=== PATIENT | female | born 1975 | race Hispanic/Latino ===

== ENCOUNTER 2018-10-20 00:06 | Inpatient (IN) | payer OTHER ==
[2018-10-20 00:06] VITALS: BMI 23.6
[2018-10-20] MEDS ORDERED: Sodium Chloride 0.9% 1,000 ML IV ONE ×2 (00:30→00:31)
[2018-10-20] MEDS ORDERED: Iohexol 240 (50 ml) PO ONE (00:31)
--- NOTE | 2018-10-20 00:34 | C.PDOC ---
History Of Present Illness 43 year old female presents to the ED c/o left sided abdominal pain that started last night. Patient states she has history of diverticulitis in the past. Patient also reports having on and off fever since yesterday. Patient was seen at an Urgent Care today and her WBC was noted to be 19,000. Patient was referred to the ED for evaluation. Patient denies chills, headache, rash, CP, SOB, nausea, vomit, diarrhea, back pain, weakness, numbness. Chief Complaint (Nursing): Abdominal Pain History Per: Patient History/Exam Limitations: no limitations Onset/Duration Of Symptoms: Days (1) Current Symptoms Are (Timing): Still Present Location Of Pain/Discomfort: LLQ Quality Of Discomfort: "Pain" Associated Symptoms: Fever. denies: Nausea, Vomiting, Diarrhea, Urinary Symptoms Recent travel outside of the [place] States: No Additional History Per: Patient Abnormal Vaginal Bleeding: No Past Medical History Reviewed: Historical Data, Nursing Documentation, Vital Signs Vital Signs: Last Vital Signs Temp 97.8 F 10/20/18 00:14 Pulse 103 H 10/20/18 00:14 Resp 20 10/20/18 00:14 BP 121/81 10/20/18 00:14 Pulse Ox 100 10/20/18 00:14 - Medical History PMH: Diverticulitis Denies: Chronic Kidney Disease Surgical History: Appendectomy Family History: States: Unknown Family Hx - Social History Hx Alcohol Use: Yes Hx Substance Use: No - Immunization History Hx Tetanus Toxoid Vaccination: No Hx Influenza Vaccination: No Hx Pneumococcal Vaccination: No Review Of Systems Constitutional: Positive for: Fever Cardiovascular: Negative for: Chest Pain, Palpitations Respiratory: Negative for: Shortness of Breath Gastrointestinal: Positive for: Abdominal Pain. Negative for: Nausea, Vomiting, Diarrhea Skin: Negative for: Rash Neurological: Negative for: Weakness, Numbness, Headache, Dizziness Physical Exam - Physical Exam Appears: Non-toxic, No Acute Distress Skin: Normal Color, Warm, Dry Head: Atraumatic, Normacephalic Eye(s): bilateral: Normal Inspection Oral Mucosa: Moist Neck: Normal ROM, Supple Chest: Symmetrical Cardiovascular: Rhythm Regular Respiratory: Normal Breath Sounds, No Rales, No Rhonchi, No Wheezing Gastrointestinal/Abdominal: Soft, Tenderness (LLQ), No Guarding, Rebound (questionable ) Extremity: Normal ROM, No Tenderness, No Swelling Neurological/Psych: Oriented x3, Normal Speech, Normal Cognition Gait: Steady ED Course And Treatment - Laboratory Results Result Diagrams: 10/20/18 00:47 10/20/18 00:47 O2 Sat by Pulse Oximetry: 100 (ON RA) Pulse Ox Interpretation: Normal Medical Decision Making Medical Decision Making: Plan: * CT abd/pelvis * Labs * IV fluids * Toradol 30 mg IVP * Blood culture * UA Disposition Discussed With DrJenny: Harley Mcrae Doctor Will See Patient In The: Hospital Counseled Patient/Family Regarding: Diagnosis - Disposition Disposition: HOSPITALIZED Disposition Time: 03:40 Condition: STABLE Forms: [employer] (Tai[place]ese) - POA Present On Arrival: None - Clinical Impression Clinical Impression: Abdominal pain, Acute diverticulitis, Colitis - Scribe Statement The provider has reviewed the documentation as recorded by the Scribe Jeanmarie Ross All medical record entries made by the Scribe were at my direction and personally dictated by me. I have reviewed the chart and agree that the record accurately reflects my personal performance of the history, physical exam, medical decision making, and the department course for this patient. I have also personally directed, reviewed, and agree with the discharge instructions and dis position.
[2018-10-20] MEDS ORDERED: Sodium Chloride 0.9% 1,000 ML ONE ×2 (00:36→01:24)
[2018-10-20] MEDS ORDERED: metroNIDAZOLE IV 500 mg/100 ml 500 MG/100 ML BAG IVPB SCH (00:45)
[2018-10-20] MEDS ORDERED: Iohexol 240 (50 ml) ONE (00:52)
[2018-10-20] MEDS ORDERED: Ciprofloxacin 400mg/200ml D5W 400 MG/200 ML BAG IVPB ONE (00:53)
[2018-10-20 00:56] LABS: HCG,QUALITATIVE URINE NEGATIVE (NEGATIVE); SQUAMOUS EPITHIAL 1 /hpf (0-5); URINE BILIRUBIN NEGATIVE (NEGATIVE); URINE CLARITY Clear (Clear); URINE COLOR Straw (YELLOW); URINE GLUCOSE (UA) NORMAL (Normal); URINE LEUKOCYTE ESTERASE NEG Leu/uL (Negative); URINE PROTEIN NEGATIVE (NEGATIVE); URINE UROBILINOGEN NORMAL mg/dL (0.2-1.0)
[2018-10-20 00:57] LABS: URINE BLOOD NEGATIVE (NEGATIVE)
[2018-10-20 01:11] LABS: ALB/GLOB RATIO 1.6 (1.0-2.1); ALBUMIN 4.7 g/dL (3.5-5.0); ALT/SGPT 22 U/L (9-52); AST/SGOT 29 U/L (14-36); BLOOD UREA NITROGEN 9 mg/dL (7-17); CALCIUM 9.5 mg/dl (8.6-10.4); GFR NON-AFRICAN AMERICAN > 60; LIPASE 20 U/L (23-300)
[2018-10-20 01:12] LABS: BASO # 0.1 K/uL (0.0-0.2); BASO % 0.3 % (0.0-2.0); EOS % 0.2 % (0.0-4.0); HEMOGLOBIN 11.8 g/dL (11.0-16.0); LYMPH # 2.5 K/uL (1.0-4.3); MEAN CELL VOLUME 92.8 fL (81.0-99.0); MEAN CORPUSCULAR HEMOGLOBIN 30.6 pg (27.0-31.0); MEAN CORPUSCULAR HGB CONC 32.9 g/dL (33.0-37.0); MEAN PLATELET VOLUME 7.9 fL (7.2-11.7); MONO # 1.5 K/uL (0.0-0.8); MONO % 8.3 % (0.0-10.0); NEUT # 13.8 K/uL (1.8-7.0); NEUT % 77.2 % (50.0-75.0); RBC 3.87 Mil/uL (3.80-5.20); WHITE BLOOD COUNT 17.9 K/uL (4.8-10.8)
[2018-10-20] MEDS ORDERED: metroNIDAZOLE IV 500 mg/100 ml 500 MG/100 ML BAG IVPB STA (01:13)
[2018-10-20] MEDS: Ciprofloxacin 400mg/200ml D5W 400 MG/200 ML BAG IVPB STA ×2 (01:17→01:19)
[2018-10-20] MEDS ORDERED: Iodixanol 320 MG/ML 100 ML BOTTLE IV ONE (02:20)
[2018-10-20] MEDS ORDERED: metroNIDAZOLE IV 500 mg/100 ml 500 MG/100 ML BAG ONE (03:02)
--- NOTE | 2018-10-20 05:06 | CP.PCM.HP ---
<Bruna Robles - Last Filed: 10/20/18 06:52> History of Present Illness - History of Present Illness History of Present Illness: PGY-1 Bruna Robles D.O. H&P for Dr. Mcrae's service: Patient is a 43 yo female with a history of diverticulitis who presents with abdominal pain. Patient states that the pain started 2 days ago and was diffuse. The pain severity increased to 7/10 and localized to the left side. She reports having 3 episodes of diarrhea on Thursday, nonbloody, which has since resolved. She also endorses fever, Tmax 100.6. She denies nausea and vomiting. She does note that eating makes the pain worse and the last meal she had was lunch yesterday. She has only had clear liquids since. She went to urgent care yesterday and was given Augmentin. She then received a call last night from the urgent care who told her her WBC was elevated at 19, and they recommend she go to the ED. Patient reports having 2 previous episodes of diverticulitis. The first was 6 years ago during which she was septic. The most recent was 3 years ago and uncomplicated. Patient says she had nonspecific GI symptoms as a teenager. She has had a total of 4 colonoscopies, most recent 5 years ago. She was given conflicting diagnoses, including IBS and colitis. She currently does not follow with a PMD or GI. PMH: diverticulitis x2 PSH: colonoscopy x4 (most recent approx 5 years ago) Meds: none All: codeine- hives, sulfa- hives FH: mother- HTN SH: lives alone, works as an actor, drinks alcohol socially, denies tobacco or illicit drug use PMD: none Present on Admission - Present on Admission Any Indicators Present on Admission: No History of DVT/PE: No History of Uncontrolled Diabetes: No Urinary Catheter: No Decubitus Ulcer Present: No History Surgical Site Infection Following: None Review of Systems - Constitutional Constitutional: Chills, Fever. absent: Weight Loss - EENT Eyes: absent: Change in Vision Ears: absent: Decreased Hearing Nose/Mouth/Throat: absent: Nasal Congestion, Sore Throat - Cardiovascular Cardiovascular: absent: Chest Pain, Diaphoresis, Palpitations - Respiratory Respiratory: absent: Cough, Dyspnea - Gastrointestinal Gastrointestinal: As Per HPI, Abdominal Pain, Diarrhea, Loose Stools. absent: Constipation, Heartburn, Hematochezia, Melena, Nausea, Vomiting - Genitourinary Genitourinary: absent: Dysuria, Hematuria - Integumentary Integumentary: absent: Lesions Past Patient History - Infectious Disease Hx of Infectious Diseases: None - Tetanus Immunizations Tetanus Immunization: Unknown - Past Medical History & Family History Past Medical History?: Yes Past Family History: Reviewed and not pertinent - Past Social History Smoking Status: Never Smoked Chewing Tobacco Use: No Cigar Use: No Alcohol: Social Drugs: Denies Home Situation {Lives}: Alone - CARDIAC Hx Cardiac Disorders: No - PULMONARY Hx Respiratory Disorders: No - NEUROLOGICAL Hx Neurological Disorder: No - HEENT Hx HEENT Problems: No - RENAL Hx Chronic Kidney Disease: No - ENDOCRINE/METABOLIC Hx Endocrine Disorders: No - HEMATOLOGICAL/ONCOLOGICAL Hx Blood Disorders: No - INTEGUMENTARY Hx Dermatological Problems: No - MUSCULOSKELETAL/RHEUMATOLOGICAL Hx Musculoskeletal Disorders: No Hx Falls: No - GASTROINTESTINAL Hx Diverticulitis: Yes - GENITOURINARY/GYNECOLOGICAL Hx Genitourinary Disorders: No - PSYCHIATRIC Hx Substance Use: No - SURGICAL HISTORY Hx Appendectomy: Yes - ANESTHESIA Hx Anesthesia: Yes Hx Anesthesia Reactions: No Meds Allergies/Adverse Reactions: Allergies Allergy/AdvReac Type Severity Reaction Status Date / Time codeine Allergy Mild RASH Verified 10/20/18 00:20 Sulfa (Sulfonamide Allergy Mild RASH Verified 10/20/18 00:20 Antibiotics) Physical Exam - Constitutional Appears: Non-toxic, No Acute Distress - Head Exam Head Exam: ATRAUMATIC, NORMAL INSPECTION - Eye Exam Eye Exam: EOMI, Normal appearance, PERRL - ENT Exam ENT Exam: Mucous Membranes Moist - Neck Exam Neck exam: Positive for: Normal Inspection - Respiratory Exam Respiratory Exam: Clear to Auscultation Bilateral, NORMAL BREATHING PATTERN - Cardiovascular Exam Cardiovascular Exam: RRR, +S1, +S2 - GI/Abdominal Exam GI & Abdominal Exam: Guarding, Rebound, Soft, Tenderness (epigastric, LUQ, LLQ). absent: Distended, Mass Additional comments: Psoas sign positive on the right Rovsing's sign positive - Extremities Exam Extremities exam: Positive for: normal inspection. Negative for: pedal edema - Neurological Exam Neurological exam: Alert, CN II-XII Intact, Oriented x3 - Psychiatric Exam Psychiatric exam: Normal Affect, Normal Mood - Skin Skin Exam: Dry, Normal Color, Warm Results - Vital Signs Recent Vital Signs: Last Vital Signs Temp 98.1 F 10/20/18 03:04 Pulse 75 10/20/18 03:04 Resp 18 10/20/18 03:04 BP 107/71 10/20/18 03:04 Pulse Ox 100 10/20/18 03:41 - Labs Result Diagrams: 10/20/18 00:47 10/20/18 00:47 Labs: Laboratory Results - last 24 hr 10/20/18 10/20/18 10/20/18 00:47 00:47 00:47 WBC 17.9 H RBC 3.87 Hgb 11.8 Hct 35.9 MCV 92.8 MCH 30.6 MCHC 32.9 L RDW 13.0 Plt Count 358 MPV 7.9 Neut % (Auto) 77.2 H Lymph % (Auto) 14.0 L [place] % (Auto) 8.3 Eos % (Auto) 0.2 Baso % (Auto) 0.3 Neut # (Auto) 13.8 H Lymph # (Auto) 2.5 [place] # (Auto) 1.5 H Eos # (Auto) 0.0 Baso # (Auto) 0.1 Sodium 136 Potassium 3.8 Chloride 102 Carbon Dioxide 25 Anion Gap 14 BUN 9 Creatinine 0.5 L Est GFR ( Amer) > 60 Est GFR (Non-Af Amer) > 60 Random Glucose 101 Calcium 9.5 Total Bilirubin 0.9 AST 29 ALT 22 Alkaline Phosphatase 59 Total Protein 7.6 Albumin 4.7 Globulin 2.9 Albumin/Globulin Ratio 1.6 Lipase 20 L Urine Color Straw Urine Clarity Clear Urine pH 6.0 Ur Specific [place]ady 1.010 Urine Protein Negative Urine Glucose (UA) Normal Urine Ketones Negative Urine Blood Negative Urine Nitrate Negative Urine Bilirubin Negative Urine Urobilinogen Normal Ur Leukocyte Esterase Neg Urine WBC (Auto) < 1 Urine RBC (Auto) 3 Ur Squamous Epith Cells 1 Urine HCG, Qual Negative - Imaging and Cardiology CT scan - abdomen Status: Image reviewed by me, Report reviewed by me Assessment & Plan - Assessment and Plan (Free Text) Assessment: Patient is a 43 yo female with a history of diverticulitis who presents with abdominal pain. Imaging shows uncomplicated acute diverticulitis. Plan: Acute diverticulitis - Afebrile - Leukocytosis (WBC 17.9) - CT A/P: acute uncomplicated diverticulitis of distal descending colon and sigmoid - f/u Blood Cx - NPO - D5 1/2NS @ 100 cc/hr - Cipro 400 mg IV Q12H- started 10/20 - Flagyl 500 mg IV Q8H- started 10/20 - Toradol 15 mg IV Q6H PRN - Surgery consulted ([facility]) - GI consulted (Bill) Ppx: VTE: SCDs GI: Protonix 40 mg IV daily Code status: full code Case discussed with attending, Dr. Mcrae. <Harley Mcrae P - Last Filed: 10/20/18 07:19> Results - Vital Signs Recent Vital Signs: Last Vital Signs Temp 97 F L 10/20/18 06:26 Pulse 77 10/20/18 06:26 Resp 18 10/20/18 06:26 BP 117/77 10/20/18 06:26 Pulse Ox 97 10/20/18 06:26 - Labs Result Diagrams: 10/20/18 00:47 10/20/18 00:47 Labs: Laboratory Results - last 24 hr 10/20/18 10/20/18 10/20/18 00:47 00:47 00:47 WBC 17.9 H RBC 3.87 Hgb 11.8 Hct 35.9 MCV 92.8 MCH 30.6 MCHC 32.9 L RDW 13.0 Plt Count 358 MPV 7.9 Neut % (Auto) 77.2 H Lymph % (Auto) 14.0 L [place] % (Auto) 8.3 Eos % (Auto) 0.2 Baso % (Auto) 0.3 Neut # (Auto) 13.8 H Lymph # (Auto) 2.5 [place] # (Auto) 1.5 H Eos # (Auto) 0.0 Baso # (Auto) 0.1 Sodium 136 Potassium 3.8 Chloride 102 Carbon Dioxide 25 Anion Gap 14 BUN 9 Creatinine 0.5 L Est GFR ( Amer) > 60 Est GFR (Non-Af Amer) > 60 Random Glucose 101 Calcium 9.5 Total Bilirubin 0.9 AST 29 ALT 22 Alkaline Phosphatase 59 Total Protein 7.6 Albumin 4.7 Globulin 2.9 Albumin/Globulin Ratio 1.6 Lipase 20 L Urine Color Straw Urine Clarity Clear Urine pH 6.0 Ur Specific [place] 1.010 Urine Protein Negative Urine Glucose (UA) Normal Urine Ketones Negative Urine Blood Negative Urine Nitrate Negative Urine Bilirubin Negative Urine Urobilinogen Normal Ur Leukocyte Esterase Neg Urine WBC (Auto) < 1 Urine RBC (Auto) 3 Ur Squamous Epith Cells 1 Urine HCG, Qual Negative Attending/Attestation - Attestation I have personally seen and examined this patient.: Yes I have fully participated in the care of the patient.: Yes I have reviewed all pertinent clinical information: Yes Notes (Text): 10/20/18 07:15 History 2 prior episodes of inflammation in the descending colon but different segments, ? h/o colitis in the past colonoscopies done > 6 yrs back, will give bowel rest, npo, pain control, ivf, abx, gi/surgical eval for out patient colonoscopy once current inflammation healed. Patient is allergic to codeine, with hives, but has received morphing in the past without any reaction.
[2018-10-20] MEDS: Dextrose 5%/0.45% NS 1,000 ML IV SCH ×3 (06:46→23:41)
--- NOTE | 2018-10-20 07:48 | CT ---
CT abdomen and pelvis HISTORY: Abdominal pain. COMPARISON: None available. TECHNIQUE: Multiple contiguous axial images were performed through the abdomen and pelvis with the use of intravenous contrast. Subsequently, sagittal and coronal reformatted images were obtained. This CT exam was performed using one or more of the following dose reduction techniques: Automated exposure control, adjustment of the mA and/or kV according to patient size, and/or use of iterative reconstruction technique. Findings: Lung bases are preserved. No pleural or pericardial effusion. At the level of the right adrenal gland, at the medial border of the right hepatic lobe on series 3, image 39, there is a prominent ovoid low-attenuation lesion measuring 3.2 x 2.2 centimeters demonstrating a Hounsfield unit attenuation of 35, indeterminate. This indents onto the medial border of the right hepatic lobe and it is unclear whether this is adrenal or hepatic in origin. Correlation with multiphasic contrast enhanced CT or MR through the abdomen would be helpful for further evaluation if clinically indicated. Remainder of the liver is preserved. Gallbladder is preserved. Spleen is preserved. Left adrenal gland is preserved. Pancreas is preserved. Upper abdominal bowel is preserved. Right kidney: No calculi or hydronephrosis. Left Kidney: No calculi or hydronephrosis. Urinary bladder is preserved. Heterogeneous uterus. 1.6 centimeter right adnexal cyst. Colonic diverticulosis. Focal colonic thickening with associated adjacent fat stranding and fluid at the level of the proximal sigmoid colon best seen on series 3, images 107 through 122 suggestive for a focal diverticulitis versus focal colitis versus additional etiology. Post treatment interval follow-up is recommended to exclude underlying colonic lesion. Clinical correlation. Appendix not well visualized. Few shotty para-aortic and inguinal lymph nodes. Few shotty mesenteric lymph nodes. Degenerative changes in the spine. Impression: 1. Colonic diverticulosis. Focal colonic thickening with associated adjacent fat stranding and fluid at the level of the proximal sigmoid colon best seen on series 3, images 107 through 122 suggestive for a focal diverticulitis versus focal colitis versus additional etiology. Post treatment interval follow-up is recommended to exclude underlying colonic lesion. Clinical correlation. 2. At the level of the right adrenal gland, at the medial border of the right hepatic lobe on series 3, image 39, there is a prominent ovoid low-attenuation lesion measuring 3.2 x 2.2 centimeters demonstrating a Hounsfield unit attenuation of 35, indeterminate. This indents onto the medial border of the right hepatic lobe and it is unclear whether this is adrenal or hepatic in origin. Correlation with multiphasic contrast enhanced CT or MR through the abdomen would be helpful for further evaluation if clinically indicated. 3. 1.6 centimeter right adnexal cyst. 4. Appendix not well visualized. A preliminary report was generated at 3:24 a.m. on 10/20/[address] Kendall Casillas from [email or web address].
[2018-10-20 07:56] VITALS: RESP 20
--- NOTE | 2018-10-20 09:25 | CP.PCM.PN ---
<Clive Lomelie - Last Filed: 10/20/18 16:52> Subjective - Date & Time of Evaluation Date of Evaluation: 10/20/18 Time of Evaluation: 09:22 - Subjective Subjective: HOSPITALIST SERVICE Pt s/e at bedside, reports persistent lower left sided abdominal pain, however improving from 8/10 last night to 4/10 today this AM, pt still has not tried eating, has not had a bm, denies cp sob fc nv overnight, was able to sleep reasonably. Objective - Vital Signs/Intake and Output Vital Signs (last 24 hours): Temp Pulse Resp BP Pulse Ox 98.1 F 76 20 121/74 97 10/20/18 07:00 10/20/18 07:00 10/20/18 07:00 10/20/18 07:00 10/20/18 07:00 - Medications Medications: Current Medications Sodium Chloride (Sodium Chloride 0.9%) 1,000 mls @ 100 mls/hr IV .Q10H ONE Stop: 10/20/18 10:30 Last Admin: 10/20/18 01:45 Dose: 100 mls/hr Ciprofloxacin (Cipro 400mg/200ml Dsw) 400 mg in 200 mls @ 133 mls/hr IVPB Q12H JELANI; Protocol Metronidazole (Flagyl) 500 mg in 100 mls @ 100 mls/hr IVPB Q8H JELANI; Protocol Dextrose/Sodium Chloride (Dextrose 5%/0.45% Ns 1000 Ml) 1,000 mls @ 100 mls/hr IV .Q10H JELANI Last Admin: 10/20/18 06:46 Dose: 100 mls/hr Influenza Virus Vaccine (Flucelvax Quad 0710-0440 Syr) 60 mcg IM .ONCE ONE Stop: 10/21/18 10:01 Ketorolac Tromethamine (Toradol) 15 mg IVP Q6 PRN PRN Reason: Pain, moderate (4-7) Lactobacillus Acidophilus (Lactobacillus) 1 cap PO Q12H JELANI Pantoprazole Sodium (Protonix Inj) 40 mg IVP DAILY JELANI - Labs Labs: 10/20/18 00:47 10/20/18 00:47 - Constitutional Appears: Non-toxic, No Acute Distress - Head Exam Head Exam: ATRAUMATIC, NORMAL INSPECTION - Eye Exam Eye Exam: EOMI, Normal appearance Pupil Exam: NORMAL ACCOMODATION, PERRL - ENT Exam ENT Exam: Mucous Membranes Moist - Neck Exam Neck Exam: absent: Lymphadenopathy, Thyromegaly - Respiratory Exam Respiratory Exam: Chest Wall Tenderness, NORMAL BREATHING PATTERN. absent: Rales, Wheezes - Cardiovascular Exam Cardiovascular Exam: RRR, +S1, +S2 - GI/Abdominal Exam GI & Abdominal Exam: Guarding (no sever pain noted at rest, light palpation whe pressing down elicited immediate pain response), Soft, Tenderness (LLQ on light palpation). absent: Distended, Rigid, Diminished Bowel Sounds, Organomegaly - Extremities Exam Extremities Exam: Normal Inspection. absent: Pedal Edema - Neurological Exam Neurological Exam: Alert, Awake, Oriented x3 - Psychiatric Exam Psychiatric exam: Normal Affect, Normal Mood - Skin Skin Exam: Dry, Normal Color, Warm Assessment and Plan - Assessment and Plan (Free Text) Assessment: Patient is a 43 yo female with a history of diverticulitis who presents with abdominal pain. Imaging shows uncomplicated acute diverticulitis. Plan: Acute diverticulitis - Afebrile - Leukocytosis (WBC 17.9) - CT A/P: acute uncomplicated diverticulitis of distal descending colon and sigmoid, adrenal mass noted - MRI abd w/ and w/o tmrw AM: f/u results to asses renal mass noted on CT NPO past midnight Ativan 0.5 IVP 30min before transport to MRI - f/u Blood Cx - Diet advanced to Liquids today - D5 1/2NS @ 100 cc/hr - Cipro 400 mg IV Q12H- started 10/20 - Flagyl 500 mg IV Q8H- started 10/20 - Toradol 15 mg IV Q6H PRN - Surgery consulted ([facility]) - GI consulted (Bill) conservative management, f/u with outpt scope Adrenal Mass noted on CT - MRI abd w/ and w/o contrast: f/u results - CT Ab Pel: 3.2x2.2cm ovoid lesion Rt Adrenal vs Liver Lesion Ppx: VTE: SCDs GI: Protonix 40 mg IV daily <Daquan Rock - Last Filed: 10/20/18 19:20> Objective - Vital Signs/Intake and Output Vital Signs (last 24 hours): Temp Pulse Resp BP Pulse Ox 98.8 F 87 20 110/69 97 10/20/18 15:00 10/20/18 15:00 10/20/18 15:00 10/20/18 15:00 10/20/18 15:00 - Medications Medications: Current Medications Ciprofloxacin (Cipro 400mg/200ml Dsw) 400 mg in 200 mls @ 133 mls/hr IVPB Q12H JELANI; Protocol Last Admin: 10/20/18 13:00 Dose: 133 mls/hr Metronidazole (Flagyl) 500 mg in 100 mls @ 100 mls/hr IVPB Q8H JELANI; Protocol Last Admin: 10/20/18 11:00 Dose: 100 mls/hr Dextrose/Sodium Chloride (Dextrose 5%/0.45% Ns 1000 Ml) 1,000 mls @ 100 mls/hr IV .Q10H JELANI Last Admin: 10/20/18 16:00 Dose: Not Given Influenza Virus Vaccine (Flucelvax Quad [id number] Syr) 60 mcg IM .ONCE ONE Stop: 10/21/18 10:01 Ketorolac Tromethamine (Toradol) 15 mg IVP Q6 PRN PRN Reason: Pain, moderate (4-7) Last Admin: 10/20/18 11:52 Dose: 15 mg Lactobacillus Acidophilus (Lactobacillus) 1 cap PO Q12H JELANI Lorazepam (Ativan) 0.5 mg IVP ONCE PRN PRN Reason: Anxiety Pantoprazole Sodium (Protonix Inj) 40 mg IVP DAILY [facility] Last Admin: 10/20/18 10:18 Dose: 40 mg - Labs Labs: 10/20/18 00:47 10/20/18 00:47 Attending/Attestation - Attestation I have personally seen and examined this patient.: Yes I have fully participated in the care of the patient.: Yes I have reviewed all pertinent clinical information, including history, physical exam and plan: Yes Notes (Text): 10/20/18 19:16 Patient was seen and examined at 8:30 AM Care of this patient was gone over with resident Dr. Lomeli. Also upon FULL ROS: LLQ constant sharp pain that was 8/10 upon admission and now is 4/10 NO n/v since admission NO bowel movement yet NO other complaints upon FULL ROS Also on Exam: LLQ pain with palpation with slight guarding and rebound tenderness Started on clear liquids and will advance as tolerated MRI Abdomen/Pelvis with contrast for 10/21/18 to evaluate for 3.2 x 2.2 cm Right Adrenal Lesion vs Hepatic Lesion: this was explained to patient She will be pretreated with Ativan 0.5 mg IV x 1 dose Explained plan to Nurse Nina Rock D.O.
--- NOTE | 2018-10-20 09:45 | CP.PCM.CON ---
<Sylvester Scott - Last Filed: 10/20/18 09:41> History of Present Illness - History of Present Illness History of Present Illness: PGY6 GI Fellow Consult Note Patient is a 43yo female with PMHx significant for complicated diverticulitis twice previously who presented to the ED with abdominal pain. Patient developed LLQ abdominal pain Thursday followed by 3-4 episodes of loose, watery st ool. Symptoms improved with defecation and pain did not return until Thursday evening in to Thursday morning. With movement and palpation, pain intensified Thursday prompting her to be evaluated at an urgent care center. She was given an antibiotic and had blood work. Later last night, the urgent care contacted her to let her know her WBC was 19,000 on CBC and she should present to the ED for further evaluation. Since arrival, she has had CT confirming a third episode of sigmoid diverticulitis and was initiated on Cipro/Flagyl IV. She admits to improvement in pain since last night and is eager to eat. No nausea, vomiting, weight loss, hematochezia, melena. 12 system ROS performed and negative except where stated PMHx: See HPI PSHx: Discussed with patient and she denies surgical history FHx: Discussed with patient and she denies significant family history Social: 1 drink 2-3 times weekly; denies tobacco or illicit drug use Endo: 4 colonoscopy previously - all performed prior to first diverticulitis episode ~6 years ago Past Patient History - Infectious Disease Hx of Infectious Diseases: None - Tetanus Immunizations Tetanus Immunization: Unknown - Past Medical History & Family History Past Medical History?: Yes Past Family History: Reviewed and not pertinent - Past Social History Smoking Status: Never Smoked Chewing Tobacco Use: No Cigar Use: No Alcohol: Social Drugs: Denies Home Situation {Lives}: Alone - CARDIAC Hx Cardiac Disorders: No - PULMONARY Hx Respiratory Disorders: No - NEUROLOGICAL Hx Neurological Disorder: No - HEENT Hx HEENT Problems: No - RENAL Hx Chronic Kidney Disease: No - ENDOCRINE/METABOLIC Hx Endocrine Disorders: No - HEMATOLOGICAL/ONCOLOGICAL Hx Blood Disorders: No - INTEGUMENTARY Hx Dermatological Problems: No - MUSCULOSKELETAL/RHEUMATOLOGICAL Hx Musculoskeletal Disorders: No Hx Falls: No - GASTROINTESTINAL Hx Diverticulitis: Yes - GENITOURINARY/GYNECOLOGICAL Hx Genitourinary Disorders: No - PSYCHIATRIC Hx Substance Use: No - SURGICAL HISTORY Hx Appendectomy: Yes - ANESTHESIA Hx Anesthesia: Yes Hx Anesthesia Reactions: No Meds Allergies/Adverse Reactions: Allergies Allergy/AdvReac Type Severity Reaction Status Date / Time codeine Allergy Mild RASH Verified 10/20/18 00:20 Sulfa (Sulfonamide Allergy Mild RASH Verified 10/20/18 00:20 Antibiotics) - Medications Medications: Current Medications Sodium Chloride (Sodium Chloride 0.9%) 1,000 mls @ 100 mls/hr IV .Q10H ONE Stop: 10/20/18 10:30 Last Admin: 10/20/18 01:45 Dose: 100 mls/hr Ciprofloxacin (Cipro 400mg/200ml Dsw) 400 mg in 200 mls @ 133 mls/hr IVPB Q12H JELANI; Protocol Metronidazole (Flagyl) 500 mg in 100 mls @ 100 mls/hr IVPB Q8H JELANI; Protocol Dextrose/Sodium Chloride (Dextrose 5%/0.45% Ns 1000 Ml) 1,000 mls @ 100 mls/hr IV .Q10H JELANI Last Admin: 10/20/18 06:46 Dose: 100 mls/hr Influenza Virus Vaccine (Flucelvax Quad [id number] Syr) 60 mcg IM .ONCE ONE Stop: 10/21/18 10:01 Ketorolac Tromethamine (Toradol) 15 mg IVP Q6 PRN PRN Reason: Pain, moderate (4-7) Lactobacillus Acidophilus (Lactobacillus) 1 cap PO Q12H JELANI Pantoprazole Sodium (Protonix Inj) 40 mg IVP DAILY [facility] Physical Exam - Constitutional Appears: Non-toxic, No Acute Distress - Eye Exam Eye Exam: EOMI, PERRL - ENT Exam ENT Exam: Mucous Membranes Moist - Respiratory Exam Respiratory Exam: Clear to Auscultation Bilateral. absent: Rales, Rhonchi, Wheezes - Cardiovascular Exam Cardiovascular Exam: RRR, +S1, +S2 - GI/Abdominal Exam GI & Abdominal Exam: Normal Bowel Sounds, Soft, Tenderness (LLQ). absent: Di stended, Firm, Guarding, Hernia, Mass, Organomegaly, Rigid - Extremities Exam Extremities exam: Positive for: normal inspection. Negative for: pedal edema - Neurological Exam Neurological exam: Alert, Oriented x3 - Psychiatric Exam Psychiatric exam: Normal Affect, Normal Mood - Skin Skin Exam: Dry, Warm Results - Vital Signs Recent Vital Signs: Last Vital Signs Temp 98.1 F 10/20/18 07:00 Pulse 76 10/20/18 07:00 Resp 20 10/20/18 07:00 BP 121/74 10/20/18 07:00 Pulse Ox 97 10/20/18 07:00 - Labs Result Diagrams: 10/20/18 00:47 10/20/18 00:47 Labs: Laboratory Results - last 24 hr 10/20/18 10/20/18 10/20/18 00:47 00:47 00:47 WBC 17.9 H RBC 3.87 Hgb 11.8 Hct 35.9 MCV 92.8 MCH 30.6 MCHC 32.9 L RDW 13.0 Plt Count 358 MPV 7.9 Neut % (Auto) 77.2 H Lymph % (Auto) 14.0 L [place] % (Auto) 8.3 Eos % (Auto) 0.2 Baso % (Auto) 0.3 Neut # (Auto) 13.8 H Lymph # (Auto) 2.5 [place] # (Auto) 1.5 H Eos # (Auto) 0.0 Baso # (Auto) 0.1 Sodium 136 Potassium 3.8 Chloride 102 Carbon Dioxide 25 Anion Gap 14 BUN 9 Creatinine 0.5 L Est GFR ( Amer) > 60 Est GFR (Non-Af Amer) > 60 Random Glucose 101 Calcium 9.5 Total Bilirubin 0.9 AST 29 ALT 22 Alkaline Phosphatase 59 Total Protein 7.6 Albumin 4.7 Globulin 2.9 Albumin/Globulin Ratio 1.6 Lipase 20 L Urine Color Straw Urine Clarity Clear Urine pH 6.0 Ur Specific [place] 1.010 Urine Protein Negative Urine Glucose (UA) Normal Urine Ketones Negative Urine Blood Negative Urine Nitrate Negative Urine Bilirubin Negative Urine Urobilinogen Normal Ur Leukocyte Esterase Neg Urine WBC (Auto) < 1 Urine RBC (Auto) 3 Ur Squamous Epith Cells 1 Urine HCG, Qual Negative Assessment & Plan - Assessment and Plan (Free Text) Assessment: Patient is a 43yo female with PMHx significant for complicated diverticulitis twice previously who presented to the ED with abdominal pain -Acute sigmoid diverticulitis, third episode Plan: -CT reviewed and consistent with acute diverticulitis without complications such as abscess or perforation -Agree with IV antibiotics - Cipro/Flagyl and would complete 7-10 day course -Liquid diet, advance as tolerated -Given this is her third episode, would recommend surgical evaluation -Recommend colonoscopy 6-8 weeks after resolution of acute illness - Date & Time Date: 10/20/18 Time: 07:20 <Lance Khan - Last Filed: 10/20/18 10:20> Meds - Medications Medications: Current Medications Sodium Chloride (Sodium Chloride 0.9%) 1,000 mls @ 100 mls/hr IV .Q10H ONE Stop: 10/20/18 10:30 Last Admin: 10/20/18 01:45 Dose: 100 mls/hr Ciprofloxacin (Cipro 400mg/200ml Dsw) 400 mg in 200 mls @ 133 mls/hr IVPB Q12H JELANI; Protocol Metronidazole (Flagyl) 500 mg in 100 mls @ 100 mls/hr IVPB Q8H JELANI; Protocol Dextrose/Sodium Chloride (Dextrose 5%/0.45% Ns 1000 Ml) 1,000 mls @ 100 mls/hr IV .Q10H [facility]ELANI Last Admin: 10/20/18 06:46 Dose: 100 mls/hr Influenza Virus Vaccine (Flucelvax Quad [id number] Syr) 60 mcg IM .ONCE ONE Stop: 10/21/18 10:01 Ketorolac Tromethamine (Toradol) 15 mg IVP Q6 PRN PRN Reason: Pain, moderate (4-7) Lactobacillus Acidophilus (Lactobacillus) 1 cap PO Q12H JELANI Pantoprazole Sodium (Protonix Inj) 40 mg IVP DAILY [facility] Results - Vital Signs Recent Vital Signs: Last Vital Signs Temp 98.1 F 10/20/18 07:00 Pulse 76 10/20/18 07:00 Resp 20 10/20/18 07:00 BP 121/74 10/20/18 07:00 Pulse Ox 97 10/20/18 07:00 - Labs Result Diagrams: 10/20/18 00:47 10/20/18 00:47 Labs: Laboratory Results - last 24 hr 10/20/18 10/20/18 10/20/18 00:47 00:47 00:47 WBC 17.9 H RBC 3.87 Hgb 11.8 Hct 35.9 MCV 92.8 MCH 30.6 MCHC 32.9 L RDW 13.0 Plt Count 358 MPV 7.9 Neut % (Auto) 77.2 H Lymph % (Auto) 14.0 L [place] % (Auto) 8.3 Eos % (Auto) 0.2 Baso % (Auto) 0.3 Neut # (Auto) 13.8 H Lymph # (Auto) 2.5 [place] # (Auto) 1.5 H Eos # (Auto) 0.0 Baso # (Auto) 0.1 Sodium 136 Potassium 3.8 Chloride 102 Carbon Dioxide 25 Anion Gap 14 BUN 9 Creatinine 0.5 L Est GFR ( Amer) > 60 Est GFR (Non-Af Amer) > 60 Random Glucose 101 Calcium 9.5 Total Bilirubin 0.9 AST 29 ALT 22 Alkaline Phosphatase 59 Total Protein 7.6 Albumin 4.7 Globulin 2.9 Albumin/Globulin Ratio 1.6 Lipase 20 L Urine Color Straw Urine Clarity Clear Urine pH 6.0 Ur Specific [place] 1.010 Urine Protein Negative Urine Glucose (UA) Normal Urine Ketones Negative Urine Blood Negative Urine Nitrate Negative Urine Bilirubin Negative Urine Urobilinogen Normal Ur Leukocyte Esterase Neg Urine WBC (Auto) < 1 Urine RBC (Auto) 3 Ur Squamous Epith Cells 1 Urine HCG, Qual Negative Attending/Attestation - Attestation I have personally seen and examined this patient.: Yes I have fully participated in the care of the patient.: Yes I have reviewed all pertinent clinical information: Yes Notes (Text): 10/20/18 10:17 I have seen and examined patient with GI fellow. Agree with above documentation with the following additions. In brief, this is a 43 year old female with history of diverticulitis who presents to hospital with complaint of sudden onset LLQ abdominal pain 2 days ago. Prior to this she was in usual state of health. She has had 2 episodes of diverticulitis over the past 6-7 years. Abdominal pain was 7/10 intensity, associate with loose bowel movements. She denies nausea, vomiting, fever/chills, weight loss, rectal bleeding. She had a colonoscopy 6 years ago which showed diverticular disease as per patient. Abdominal pain Acute sigmoid diverticulitis, uncomplicated - Clear liquid diet as tolerated - Continue with antibiotic therapy - Suggest surgical evaluation given 3rd episode of recurrent diverticulitis - Patient would benefit from repeat colonoscopy 6-8 weeks following resolution of acute symptoms
[2018-10-20] MEDS: metroNIDAZOLE IV 500 mg/100 ml 500 MG/100 ML BAG IVPB SCH ×2 (11:00→19:30)
--- NOTE | 2018-10-20 11:42 | CP.PCM.CON ---
History of Present Illness - History of Present Illness History of Present Illness: Surgery Consult: Dr. Oro Pt is a 43F with PMHx significant for diverticulitis, with 2 prior episodes that required hospitalization, who now presents to for 3rd episode of diverticulitis. Pt states she started having LLQ abdominal pain on Thursday morning that eventually subsided. However, yesterday pt started having more pain especially after she ate and decided to go to the urgent care center. She was sent home on ABX however, due to elevated WBC on her blood work she was called back and told to go to the ER. In the ER, pt had a CT abdomen/pelvis which showed acute diverticulitis. Pt was admitted and started on IV ABX. Surgery called to evaluate. Currently, pt states her abdominal pain has improved. She admits to diarrhea when the pain started on Thursday however is no longer having diarrhea. She denies any nausea or vomiting, denies fevers/chills, chest pain or SOB. Pt admits to having a colonoscopy 6 yrs ago which was prior to her first attack of diverticulitis. PMHx: diverticulitis PSHx: appendectomy SocialHx: denies smoking, EtOH, drugs FamHx: denies ALL: codeine, Sulfa Review of Systems - Review of Systems All systems: reviewed and no additional remarkable complaints except (as per HPI) Past Patient History - Infectious Disease Hx of Infectious Diseases: None - Tetanus Immunizations Tetanus Immunization: Unknown - Past Medical History & Family History Past Medical History?: Yes Past Family History: Reviewed and not pertinent - Past Social History Smoking Status: Never Smoked Chewing Tobacco Use: No Cigar Use: No Alcohol: Social Drugs: Denies Home Situation {Lives}: Alone - CARDIAC Hx Cardiac Disorders: No - PULMONARY Hx Respiratory Disorders: No - NEUROLOGICAL Hx Neurological Disorder: No - HEENT Hx HEENT Problems: No - RENAL Hx Chronic Kidney Disease: No - ENDOCRINE/METABOLIC Hx Endocrine Disorders: No - HEMATOLOGICAL/ONCOLOGICAL Hx Blood Disorders: No - INTEGUMENTARY Hx Dermatological Problems: No - MUSCULOSKELETAL/RHEUMATOLOGICAL Hx Musculoskeletal Disorders: No Hx Falls: No - GASTROINTESTINAL Hx Diverticulitis: Yes - GENITOURINARY/GYNECOLOGICAL Hx Genitourinary Disorders: No - PSYCHIATRIC Hx Substance Use: No - SURGICAL HISTORY Hx Appendectomy: Yes - ANESTHESIA Hx Anesthesia: Yes Hx Anesthesia Reactions: No Meds Allergies/Adverse Reactions: Allergies Allergy/AdvReac Type Severity Reaction Status Date / Time codeine Allergy Mild RASH Verified 10/20/18 00:20 Sulfa (Sulfonamide Allergy Mild RASH Verified 10/20/18 00:20 Antibiotics) - Medications Medications: Current Medications Ciprofloxacin (Cipro 400mg/200ml Dsw) 400 mg in 200 mls @ 133 mls/hr IVPB Q12H JELANI; Protocol Metronidazole (Flagyl) 500 mg in 100 mls @ 100 mls/hr IVPB Q8H JELANI; Protocol Dextrose/Sodium Chloride (Dextrose 5%/0.45% Ns 1000 Ml) 1,000 mls @ 100 mls/hr IV .Q10H JELANI Last Admin: 10/20/18 06:46 Dose: 100 mls/hr Influenza Virus Vaccine (Flucelvax Quad [id number] Syr) 60 mcg IM .ONCE ONE Stop: 10/21/18 10:01 Ketorolac Tromethamine (Toradol) 15 mg IVP Q6 PRN PRN Reason: Pain, moderate (4-7) Lactobacillus Acidophilus (Lactobacillus) 1 cap PO Q12H JELANI Pantoprazole Sodium (Protonix Inj) 40 mg IVP DAILY [facility] Last Admin: 10/20/18 10:18 Dose: 40 mg Physical Exam - Constitutional Appears: Well, No Acute Distress - Head Exam Head Exam: ATRAUMATIC, NORMOCEPHALIC - Eye Exam Eye Exam: Normal appearance - ENT Exam ENT Exam: Mucous Membranes Moist - Respiratory Exam Respiratory Exam: NORMAL BREATHING PATTERN - Cardiovascular Exam Cardiovascular Exam: RRR - GI/Abdominal Exam GI & Abdominal Exam: Rebound (LLQ ), Soft, Tenderness (LLQ). absent: Distended, Guarding - Neurological Exam Neurological exam: Alert, Oriented x3 - Skin Skin Exam: Dry, Warm Results - Vital Signs Recent Vital Signs: Last Vital Signs Temp 98.1 F 10/20/18 07:00 Pulse 76 10/20/18 07:00 Resp 20 10/20/18 07:00 BP 121/74 10/20/18 07:00 Pulse Ox 97 10/20/18 07:00 - Labs Result Diagrams: 10/20/18 00:47 10/20/18 00:47 Labs: Laboratory Results - last 24 hr 10/20/18 10/20/18 10/20/18 00:47 00:47 00:47 WBC 17.9 H RBC 3.87 Hgb 11.8 Hct 35.9 MCV 92.8 MCH 30.6 MCHC 32.9 L RDW 13.0 Plt Count 358 MPV 7.9 Neut % (Auto) 77.2 H Lymph % (Auto) 14.0 L [place] % (Auto) 8.3 Eos % (Auto) 0.2 Baso % (Auto) 0.3 Neut # (Auto) 13.8 H Lymph # (Auto) 2.5 [place] # (Auto) 1.5 H Eos # (Auto) 0.0 Baso # (Auto) 0.1 Sodium 136 Potassium 3.8 Chloride 102 Carbon Dioxide 25 Anion Gap 14 BUN 9 Creatinine 0.5 L Est GFR ( Amer) > 60 Est GFR (Non-Af Amer) > 60 Random Glucose 101 Calcium 9.5 Total Bilirubin 0.9 AST 29 ALT 22 Alkaline Phosphatase 59 Total Protein 7.6 Albumin 4.7 Globulin 2.9 Albumin/Globulin Ratio 1.6 Lipase 20 L Urine Color Straw Urine Clarity Clear Urine pH 6.0 Ur Specific [place] 1.010 Urine Protein Negative Urine Glucose (UA) Normal Urine Ketones Negative Urine Blood Negative Urine Nitrate Negative Urine Bilirubin Negative Urine Urobilinogen Normal Ur Leukocyte Esterase Neg Urine WBC (Auto) < 1 Urine RBC (Auto) 3 Ur Squamous Epith Cells 1 Urine HCG, Qual Negative - Imaging and Cardiology CT scan - abdomen Status: Image reviewed by me, Report reviewed by me Assessment & Plan - Assessment and Plan (Free Text) Assessment: 43F with recurrent diverticulitis Plan: - cont IV ABX - serial abdominal exams - slowly advance diet - needs f/u with GI in 4-6 weeks for colonoscopy - discussed outpt f/u with Dr. Oro after colonoscopy to discuss possible resection - d/w Dr. Shorty Schulte
[2018-10-20] MEDS: Ciprofloxacin 400mg/200ml D5W 400 MG/200 ML BAG IVPB SCH (13:00)
[2018-10-20] MEDS: Lactobacillus Acidophilus 500 MU Cap PO SCH (23:00)
[2018-10-21] MEDS: Ciprofloxacin 400mg/200ml D5W 400 MG/200 ML BAG IVPB SCH ×2 (01:04→13:00)
[2018-10-21] MEDS: Dextrose 5%/0.45% NS 1,000 ML IV SCH ×4 (01:40→21:41)
[2018-10-21] MEDS: metroNIDAZOLE IV 500 mg/100 ml 500 MG/100 ML BAG IVPB SCH ×3 (03:28→20:00)
[2018-10-21 06:43] LABS: BASO % 0.4 % (0.0-2.0); EOS # 0.3 K/uL (0.0-0.7); EOS % 3.7 % (0.0-4.0); LYMPH # 2.6 K/uL (1.0-4.3); LYMPH % 28.7 % (20.0-40.0); MEAN CELL VOLUME 94.5 fL (81.0-99.0); MEAN CORPUSCULAR HEMOGLOBIN 31.1 pg (27.0-31.0); MEAN CORPUSCULAR HGB CONC 32.9 g/dL (33.0-37.0); MONO # 0.8 K/uL (0.0-0.8); MONO % 9.3 % (0.0-10.0); NEUT # 5.2 K/uL (1.8-7.0); NEUT % 57.9 % (50.0-75.0); NRBC % 0.1 % (0.0-2.0); RBC 3.17 Mil/uL (3.80-5.20); RED CELL DISTRIBUTION WIDTH 12.7 % (11.5-14.5)
[2018-10-21 06:52] LABS: HEMOGLOBIN 9.8 g/dL (11.0-16.0)
[2018-10-21 07:05] LABS: ALB/GLOB RATIO 1.4 (1.0-2.1); ALBUMIN 3.5 g/dL (3.5-5.0); ALT/SGPT 14 U/L (9-52); AST/SGOT 16 U/L (14-36); BLOOD UREA NITROGEN 3 mg/dL (7-17); CALCIUM 8.5 mg/dl (8.6-10.4); GFR NON-AFRICAN AMERICAN > 60
--- NOTE | 2018-10-21 07:33 | CP.PCM.PN ---
Subjective - Date & Time of Evaluation Date of Evaluation: 10/21/18 Time of Evaluation: 07:32 - Subjective Subjective: HOSPITALIST SERVICE Pt s/e at bedside, sitting comfortably at bedside, reports significant improvement in LLQ abd pain, now a 1/10, reports a normal BM, denies blood/black/tarry stools. denies any acute events overnight, denies CP SOB FC NV, Pt to get MRI, understands and agrees with plan, she is a pleasant happy patient. Objective - Vital Signs/Intake and Output Vital Signs (last 24 hours): Temp Pulse Resp BP Pulse Ox 98.8 F 70 20 103/62 98 10/20/18 15:00 10/21/18 00:00 10/21/18 00:00 10/21/18 00:00 10/21/18 00:00 Intake and Output: 10/21/18 10/21/18 06:59 18:59 Intake Total 1250 Balance 1250 - Medications Medications: Current Medications Ciprofloxacin (Cipro 400mg/200ml Dsw) 400 mg in 200 mls @ 133 mls/hr IVPB Q12H JELANI; Protocol Last Admin: 10/21/18 01:04 Dose: 133 mls/hr Metronidazole (Flagyl) 500 mg in 100 mls @ 100 mls/hr IVPB Q8H JELANI; Protocol Last Admin: 10/21/18 03:28 Dose: 100 mls/hr Dextrose/Sodium Chloride (Dextrose 5%/0.45% Ns 1000 Ml) 1,000 mls @ 100 mls/hr IV .Q10H JELANI Last Admin: 10/20/18 23:41 Dose: 100 mls/hr Influenza Virus Vaccine (Flucelvax Quad [id number] Syr) 60 mcg IM .ONCE ONE Stop: 10/21/18 10:01 Ketorolac Tromethamine (Toradol) 15 mg IVP Q6 PRN PRN Reason: Pain, moderate (4-7) Last Admin: 10/20/18 11:52 Dose: 15 mg Lactobacillus Acidophilus (Lactobacillus) 1 cap PO Q12H [facility] Last Admin: 10/20/18 23:00 Dose: 1 cap Lorazepam (Ativan) 0.5 mg IVP ONCE PRN PRN Reason: Anxiety Pantoprazole Sodium (Protonix Inj) 40 mg IVP DAILY [facility] Last Admin: 10/20/18 10:18 Dose: 40 mg - Labs Labs: 10/21/18 06:38 10/21/18 06:38 - Additional Findings Additional findings: - Constitutional Appears: Non-toxic, No Acute Distress - Head Exam Head Exam: ATRAUMATIC, NORMAL INSPECTION - Eye Exam Eye Exam: EOMI, Normal appearance Pupil Exam: NORMAL ACCOMODATION, PERRL - ENT Exam ENT Exam: Mucous Membranes Moist - Neck Exam Neck Exam: absent: Lymphadenopathy, Thyromegaly - Respiratory Exam Respiratory Exam: Chest Wall Tenderness, NORMAL BREATHING PATTERN. absent: Rales, Wheezes - Cardiovascular Exam Cardiovascular Exam: RRR, +S1, +S2 - GI/Abdominal Exam GI & Abdominal Exam: Guarding (no sever pain noted at rest, light palpation whe pressing down elicited minor response), Soft, Tenderness (LLQ on light palpation). absent: Distended, Rigid, Diminished Bowel Sounds, Organomegaly - Extremities Exam Extremities Exam: Normal Inspection. absent: Pedal Edema - Neurological Exam Neurological Exam: Alert, Awake, Oriented x3 - Psychiatric Exam Psychiatric exam: Normal Affect, Normal Mood - Skin Skin Exam: Dry, Normal Color, Warm GI: Protonix 40 mg IV daily Assessment and Plan - Assessment and Plan (Free Text) Assessment: Patient is a 43 yo female with a history of diverticulitis who presents with abdominal pain. Imaging shows uncomplicated acute diverticulitis. Plan: Acute diverticulitis - Afebrile - Leukocytosis (WBC 17.9) - CT A/P: acute uncomplicated diverticulitis of distal descending colon and sigmoid, adrenal mass noted - MRI abd w/ and w/o tmrw AM: f/u results to asses renal mass noted on CT NPO past midnight Ativan 0.5 IVP 30min before transport to MRI - 24hrs neg Blood Cx - Diet advanced to Low residual today - D5 1/2NS @ 100 cc/hr - Cipro 400 mg IV Q12H- started 10/20 - Flagyl 500 mg IV Q8H- started 10/20 - Toradol 15 mg IV Q6H PRN - Surgery consulted (Arazac) no sx intervention recommended f/u w/ outpt colonoscopy - GI consulted (Bill) conservative management, f/u with outpt scope advance diet liquid -> low residual Adrenal Mass noted on CT - MRI abd w/ and w/o contrast: f/u results - CT Ab Pel: 3.2x2.2cm ovoid lesion Rt Adrenal vs Liver Lesion Ppx: VTE: SCDs Pepcid 40 daily Low residual diet
[2018-10-21] MEDS: Lactobacillus Acidophilus 500 MU Cap PO SCH ×2 (08:30→21:00)
[2018-10-21] MEDS ORDERED: Gadodiamide 287 MG/ML VIAL (15ML) IV ONE (09:17)
[2018-10-21] MEDS ORDERED: Influenza Vaccine 60 mcg/0.5 mL SYR (4YR UP) IM ONE (10:00)
--- NOTE | 2018-10-21 10:16 | CP.PCM.PN ---
Subjective - Date & Time of Evaluation Date of Evaluation: 10/21/18 Time of Evaluation: 10:00 - Subjective Subjective: Surgery: Dr. Oro Pt seen and examined. No acute overnight events. States she is feeling a lot better this morning and abdominal pain has improved significantly. She states she's tolerating liquids and denies nausea/vomiting. Denies fevers/chills. Objective - Vital Signs/Intake and Output Vital Signs (last 24 hours): Temp Pulse Resp BP Pulse Ox 97.9 F 73 20 129/83 96 10/21/18 07:30 10/21/18 07:30 10/21/18 07:30 10/21/18 07:30 10/21/18 07:30 Intake and Output: 10/21/18 10/21/18 06:59 18:59 Intake Total 1250 Balance 1250 - Medications Medications: Current Medications Ciprofloxacin (Cipro 400mg/200ml Dsw) 400 mg in 200 mls @ 133 mls/hr IVPB Q12H [facility]ELANI; Protocol Last Admin: 10/21/18 01:04 Dose: 133 mls/hr Metronidazole (Flagyl) 500 mg in 100 mls @ 100 mls/hr IVPB Q8H JELANI; Protocol Last Admin: 10/21/18 03:28 Dose: 100 mls/hr Dextrose/Sodium Chloride (Dextrose 5%/0.45% Ns 1000 Ml) 1,000 mls @ 100 mls/hr IV .Q10H [facility]ELANI Last Admin: 10/21/18 01:40 Dose: Not Given Influenza Virus Vaccine (Flucelvax Quad [id number] Syr) 60 mcg IM .ONCE ONE Stop: 10/21/18 10:01 Ketorolac Tromethamine (Toradol) 15 mg IVP Q6 PRN PRN Reason: Pain, moderate (4-7) Last Admin: 10/20/18 11:52 Dose: 15 mg Lactobacillus Acidophilus (Lactobacillus) 1 cap PO Q12H [facility]ELANI Last Admin: 10/20/18 23:00 Dose: 1 cap Lorazepam (Ativan) 0.5 mg IVP ONCE PRN PRN Reason: Anxiety Last Admin: 10/21/18 08:26 Dose: 0.5 mg Pantoprazole Sodium (Protonix Inj) 40 mg IVP DAILY [facility] Last Admin: 10/20/18 10:18 Dose: 40 mg - Labs Labs: 10/21/18 06:38 10/21/18 06:38 - Constitutional Appears: Well, No Acute Distress - Head Exam Head Exam: ATRAUMATIC, NORMOCEPHALIC - Eye Exam Eye Exam: Normal appearance - ENT Exam ENT Exam: Mucous Membranes Moist - Respiratory Exam Respiratory Exam: NORMAL BREATHING PATTERN - Cardiovascular Exam Cardiovascular Exam: RRR - GI/Abdominal Exam GI & Abdominal Exam: Soft, Tenderness (in LLQ). absent: Distended, Rebound - Neurological Exam Neurological Exam: Alert, Awake, Oriented x3 - Skin Skin Exam: Dry, Warm Assessment and Plan - Assessment and Plan (Free Text) Assessment: 43F with recurrent diverticulitis; and incidental adrenal vs liver mass as seen on CT Plan: - advance diet as tolerated - f/u MRI to better assess adrenal mass - cont ABX - outpt f/u with GI for colonoscopy in 4-6 weeks - f/u with Dr. Oro as outpt after colonoscopy to discuss surgical intervention Eris
--- NOTE | 2018-10-21 10:34 | CP.PCM.PN ---
<Sylvester Scott - Last Filed: 10/21/18 10:35> Subjective - Date & Time of Evaluation Date of Evaluation: 10/21/18 Time of Evaluation: 07:25 - Subjective Subjective: PGY6 GI Fellow Progress Note Patient seen and examined bedside this morning. The patient states she is feeling much better and has significantly less pain (1/10 on pain scale). Passed loose BM without issue last night. Tolerating liquid diet. No nausea, vomiting, fever, chills. 12 system ROS performed and negative except where stated Objective - Vital Signs/Intake and Output Vital Signs (last 24 hours): Temp Pulse Resp BP Pulse Ox 97.9 F 73 20 129/83 96 10/21/18 07:30 10/21/18 07:30 10/21/18 07:30 10/21/18 07:30 10/21/18 07:30 Intake and Output: 10/21/18 10/21/18 06:59 18:59 Intake Total 1250 Balance 1250 - Medications Medications: Current Medications Ciprofloxacin (Cipro 400mg/200ml Dsw) 400 mg in 200 mls @ 133 mls/hr IVPB Q12H JELANI; Protocol Last Admin: 10/21/18 01:04 Dose: 133 mls/hr Metronidazole (Flagyl) 500 mg in 100 mls @ 100 mls/hr IVPB Q8H JELANI; Protocol Last Admin: 10/21/18 10:29 Dose: 100 mls/hr Dextrose/Sodium Chloride (Dextrose 5%/0.45% Ns 1000 Ml) 1,000 mls @ 100 mls/hr IV .Q10H JELANI Last Admin: 10/21/18 01:40 Dose: Not Given Ketorolac Tromethamine (Toradol) 15 mg IVP Q6 PRN PRN Reason: Pain, moderate (4-7) Last Admin: 10/20/18 11:52 Dose: 15 mg Lactobacillus Acidophilus (Lactobacillus) 1 cap PO Q12H JELANI Last Admin: 10/21/18 08:30 Dose: 1 cap Lorazepam (Ativan) 0.5 mg IVP ONCE PRN PRN Reason: Anxiety Last Admin: 10/21/18 08:26 Dose: 0.5 mg Pantoprazole Sodium (Protonix Inj) 40 mg IVP DAILY JELANI Last Admin: 10/21/18 10:07 Dose: 40 mg - Labs Labs: 02/21/19 06:38 10/21/18 06:38 - Constitutional Appears: Non-toxic, No Acute Distress - Eye Exam Eye Exam: EOMI, PERRL - ENT Exam ENT Exam: Mucous Membranes Moist - Respiratory Exam Respiratory Exam: Clear to Ausculation Bilateral. absent: Rales, Rhonchi, Wheezes - Cardiovascular Exam Cardiovascular Exam: RRR, +S1, +S2 - GI/Abdominal Exam GI & Abdominal Exam: Soft, Tenderness (minor LLQ), Normal Bowel Sounds. absent: Distended, Firm, Guarding, Rigid, Organomegaly - Extremities Exam Extremities Exam: Normal Inspection. absent: Pedal Edema - Neurological Exam Neurological Exam: Alert, Awake, Oriented x3 - Psychiatric Exam Psychiatric exam: Normal Affect, Normal Mood - Skin Skin Exam: Dry, Warm Assessment and Plan - Assessment and Plan (Free Text) Assessment: Patient is a 43yo female with PMHx significant for complicated diverticulitis twice previously who presented to the ED with abdominal pain -Acute sigmoid diverticulitis, third episode Plan: -Continue conservative management with Cipro/Flagyl for 7-10 days -Surgical consultation appreciated -Advance diet as tolerated -OK for D/C from GI standpoint if tolerating diet -Recommend colonoscopy 6-8 weeks after resolution of acute illness; patient to follow up with PCP in [facility] <Lance Khan - Last Filed: 10/21/18 11:33> Objective - Vital Signs/Intake and Output Vital Signs (last 24 hours): Temp Pulse Resp BP Pulse Ox 97.9 F 73 20 129/83 96 10/21/18 07:30 10/21/18 07:30 10/21/18 07:30 10/21/18 07:30 10/21/18 07:30 Intake and Output: 10/21/18 10/21/18 06:59 18:59 Intake Total 1250 Balance 1250 - Medications Medications: Current Medications Ciprofloxacin (Cipro 400mg/200ml Dsw) 400 mg in 200 mls @ 133 mls/hr IVPB Q12H JELANI; Protocol Last Admin: 10/21/18 01:04 Dose: 133 mls/hr Metronidazole (Flagyl) 500 mg in 100 mls @ 100 mls/hr IVPB Q8H JELANI; Protocol Last Admin: 10/21/18 10:29 Dose: 100 mls/hr Dextrose/Sodium Chloride (Dextrose 5%/0.45% Ns 1000 Ml) 1,000 mls @ 100 mls/hr IV .Q10H [facility] Last Admin: 10/21/18 01:40 Dose: Not Given Potassium Chloride (Potassium Chloride 20 Meq/100 Ml) 20 meq in 100 mls @ 50 mls/hr IVPB ONCE ONE Stop: 10/21/18 13:14 Ketorolac Tromethamine (Toradol) 15 mg IVP Q6 PRN PRN Reason: Pain, moderate (4-7) Last Admin: 10/20/18 11:52 Dose: 15 mg Lactobacillus Acidophilus (Lactobacillus) 1 cap PO Q12H JELANI Last Admin: 10/21/18 08:30 Dose: 1 cap Lorazepam (Ativan) 0.5 mg IVP ONCE PRN PRN Reason: Anxiety Last Admin: 10/21/18 08:26 Dose: 0.5 mg Pantoprazole Sodium (Protonix Inj) 40 mg IVP DAILY [facility] Last Admin: 10/21/18 10:07 Dose: 40 mg - Labs Labs: 10/21/18 06:38 10/21/18 06:38 Attending/Attestation - Attestation I have personally seen and examined this patient.: Yes I have fully participated in the care of the patient.: Yes I have reviewed all pertinent clinical information, including history, physical exam and plan: Yes Notes (Text): 10/21/18 11:31 I have seen and examined patient with GI fellow. No acute events overnight, her abdominal pain has significantly improved. She had a bowel movement yesterday and is tolerating PO liquids without difficulty. She denies nausea, vomiting, fever/chills. Review of vitals from today are normal. Abdominal pain Recurrent sigmoid diverticulitis - Advance diet as tolerated - Continue with antibiotic therapy to complete 7 day course - Suggest additional outpatient GI and surgical follow up with colonoscopy 6-8 weeks following resolution of acute symptoms - Follow up MRI results for adrenal lesion seen on CT imaging - No further planned GI intervention, will sign off case. Please reconsult as necessary, thank you.
[2018-10-21] MEDS ORDERED: Potassium Chloride 20 mEq/15 ml LIQ UD PO ONE ×2 (11:15→16:45)
--- NOTE | 2018-10-21 16:13 | MRI ---
MRI abdomen without/with IV contrast Indication: 3.2x 2.2 cm ovoid lesion Rt Adrenal vs Liver Lesion Technique: Multiplanar, multi sequence magnetic resonance images of the abdomen were obtained without and with the administration of intravenous gadolinium using a multi phase abdomen protocol. A total of 1172 images submitted for review Comparison: CT abdomen pelvis with contrast performed 10/20/18 Findings: 2.6 x 2.4 cm ovoid mass in the right upper quadrant at the level the right adrenal gland at the medial border of the right hepatic lobe; this mass demonstrates dropout on out of phase imaging, appears T2 hypointense, T1 intermediate/hypointense, and does not demonstrate evidence of significant postcontrast enhancement. Dropout on out of phase imaging favors adenoma. The liver appears otherwise unremarkable. The spleen, pancreas, left adrenal gland, and gallbladder appear unremarkable. The kidneys enhance symmetrically. No evidence of hydronephrosis or obstructing calculus. No bulky adenopathy identified. Limited views of the inferior thorax appear unremarkable. Impression: 2.6 x 2.4 cm ovoid mass in the right upper quadrant at the level the right adrenal gland which demonstrate clear evidence of dropout on out of phase imaging consistent with an adrenal adenoma.
[2018-10-22] MEDS: Ciprofloxacin 400mg/200ml D5W 400 MG/200 ML BAG IVPB SCH (00:50)
[2018-10-22 02:50] VITALS: O2SAT 98
[2018-10-22] MEDS: metroNIDAZOLE IV 500 mg/100 ml 500 MG/100 ML BAG IVPB SCH (03:45)
[2018-10-22 07:36] LABS: ALB/GLOB RATIO 1.4 (1.0-2.1); ALBUMIN 3.5 g/dL (3.5-5.0); ALT/SGPT 15 U/L (9-52); AST/SGOT 14 U/L (14-36); BLOOD UREA NITROGEN 7 mg/dL (7-17); CALCIUM 8.9 mg/dl (8.6-10.4); GFR NON-AFRICAN AMERICAN > 60
--- NOTE | 2018-10-22 07:49 | CP.PCM.PN ---
Subjective - Date & Time of Evaluation Date of Evaluation: 10/22/18 Time of Evaluation: 07:47 - Subjective Subjective: General Surgery Dr. Oro Pt S&E @bedside. No acute events overnight. no complaints, abd pain improved. tolerating diet. (+)Flatus/BM. Objective - Vital Signs/Intake and Output Vital Signs (last 24 hours): Temp Pulse Resp BP Pulse Ox 98.3 F 75 20 107/64 98 10/22/18 00:00 10/22/18 00:00 10/22/18 00:00 10/22/18 00:00 10/22/18 00:00 - Medications Medications: Current Medications Ciprofloxacin (Cipro 400mg/200ml Dsw) 400 mg in 200 mls @ 133 mls/hr IVPB Q12H JELANI; Protocol Last Admin: 10/22/18 00:50 Dose: 133 mls/hr Metronidazole (Flagyl) 500 mg in 100 mls @ 100 mls/hr IVPB Q8H JELANI; Protocol Last Admin: 10/22/18 03:45 Dose: 100 mls/hr Dextrose/Sodium Chloride (Dextrose 5%/0.45% Ns 1000 Ml) 1,000 mls @ 100 mls/hr IV .Q10H JELANI Last Admin: 10/21/18 21:41 Dose: Not Given Lactobacillus Acidophilus (Lactobacillus) 1 cap PO Q12H JELANI Last Admin: 10/21/18 21:00 Dose: 1 cap Lorazepam (Ativan) 0.5 mg IVP ONCE PRN PRN Reason: Anxiety Last Admin: 10/21/18 08:26 Dose: 0.5 mg Pantoprazole Sodium (Protonix Inj) 40 mg IVP DAILY JELANI Last Admin: 10/21/18 10:07 Dose: 40 mg - Labs Labs: 10/21/18 06:38 10/22/18 07:09 - Constitutional Appears: Non-toxic, No Acute Distress - Head Exam Head Exam: NORMAL INSPECTION - Eye Exam Eye Exam: Normal appearance - ENT Exam ENT Exam: Mucous Membranes Moist - Respiratory Exam Respiratory Exam: NORMAL BREATHING PATTERN. absent: Accessory Muscle Use, Respiratory Distress - Cardiovascular Exam Cardiovascular Exam: REGULAR RHYTHM. absent: Bradycardia, Tachycardia - GI/Abdominal Exam GI & Abdominal Exam: Soft, Tenderness (minimal TTP LLQ). absent: Distended, Firm, Guarding, Rigid - Extremities Exam Extremities Exam: Normal Inspection - Neurological Exam Neurological Exam: Alert, Awake, Oriented x3 - Psychiatric Exam Psychiatric exam: Normal Affect, Normal Mood - Skin Skin Exam: Dry, Intact, Normal Color, Warm Assessment and Plan - Assessment and Plan (Free Text) Assessment: 43 y/o F w/ sigmoid diverticulitis, resolved Plan: - low residue diet - ADAT - pain management - PO Abx - cleared for discharge from surgical standpoint - pt should f/u w/ GI for outpatient colonscopy in 6-8weeks - f/u in Dr. Oro's office for eventual colon resection Pt discussed w/ Dr. Shorty Crooks DO PGY3
[2018-10-22 07:58] LABS: BASO % 0.4 % (0.0-2.0); EOS # 0.3 K/uL (0.0-0.7); EOS % 4.4 % (0.0-4.0); HEMOGLOBIN 10.2 g/dL (11.0-16.0); LYMPH # 2.4 K/uL (1.0-4.3); LYMPH % 32.4 % (20.0-40.0); MEAN CELL VOLUME 94.2 fL (81.0-99.0); MEAN CORPUSCULAR HEMOGLOBIN 31.3 pg (27.0-31.0); MEAN CORPUSCULAR HGB CONC 33.2 g/dL (33.0-37.0); MEAN PLATELET VOLUME 8.2 fL (7.2-11.7); MONO # 0.6 K/uL (0.0-0.8); MONO % 8.5 % (0.0-10.0); NEUT % 54.3 % (50.0-75.0); RBC 3.25 Mil/uL (3.80-5.20); RED CELL DISTRIBUTION WIDTH 12.8 % (11.5-14.5); WHITE BLOOD COUNT 7.4 K/uL (4.8-10.8)
[2018-10-22 08:10] VITALS: BP 97/63; PULSE 65; TEMP 98.4
[2018-10-22] MEDS: Lactobacillus Acidophilus 500 MU Cap PO SCH (08:30)
--- NOTE | 2018-10-22 09:55 | CP.PCM.DIS ---
Provider - Provider Date of Admission: 10/20/18 03:45 Attending physician: Daquan Rock MD Consults: 10/20/18 07:00 General Surgery Consult Routine Comment: Consulting Provider: Paul Oro Consulting Physician: Paul Oro Reason for Consult: diverticulitis x3 Time Spent in preparation of Discharge (in minutes): 45 Hospital Course - Lab Results Lab Results: Micro Results 10/20/18 07:13 Blood Blood Culture - Preliminary NO GROWTH AFTER 48 HOURS 10/20/18 07:13 Blood Blood Culture - Preliminary NO GROWTH AFTER 48 HOURS Most Recent Lab Values WBC 7.4 K/uL (4.8-10.8) 10/22/18 07:09 RBC 3.25 Mil/uL (3.80-5.20) L 10/22/18 07:09 Hgb 10.2 g/dL (11.0-16.0) L 10/22/18 07:09 Hct 30.6 % (34.0-47.0) L 10/22/18 07:09 MCV 94.2 fL (81.0-99.0) 10/22/18 07:09 MCH 31.3 pg (27.0-31.0) H 10/22/18 07:09 MCHC 33.2 g/dL (33.0-37.0) 10/22/18 07:09 RDW 12.8 % (11.5-14.5) 10/22/18 07:09 Plt Count 321 K/uL (130-400) 10/22/18 07:09 MPV 8.2 fL (7.2-11.7) 10/22/18 07:09 Neut % (Auto) 54.3 % (50.0-75.0) 10/22/18 07:09 Lymph % (Auto) 32.4 % (20.0-40.0) 10/22/18 07:09 [place] % (Auto) 8.5 % (0.0-10.0) 10/22/18 07:09 Eos % (Auto) 4.4 % (0.0-4.0) H 10/22/18 07:09 Baso % (Auto) 0.4 % (0.0-2.0) 10/22/18 07:09 Neut # (Auto) 4.0 K/uL (1.8-7.0) 10/22/18 07:09 Lymph # (Auto) 2.4 K/uL (1.0-4.3) 10/22/18 07:09 [place] # (Auto) 0.6 K/uL (0.0-0.8) 10/22/18 07:09 Eos # (Auto) 0.3 K/uL (0.0-0.7) 10/22/18 07:09 Baso # (Auto) 0.0 K/uL (0.0-0.2) 10/22/18 07:09 Sodium 135 mmol/L (132-148) 10/22/18 07:09 Potassium 3.9 mmol/L (3.6-5.2) 10/22/18 07:09 Chloride 103 mmol/L (98-107) 10/22/18 07:09 Carbon Dioxide 27 mmol/L (22-30) 10/22/18 07:09 Anion Gap 9 (10-20) L 10/22/18 07:09 BUN 7 mg/dL (7-17) 10/22/18 07:09 Creatinine 0.5 mg/dL (0.7-1.2) L 10/22/18 07:09 Est GFR ( Amer) > 60 10/22/18 07:09 Est GFR (Non-Af Amer) > 60 10/22/18 07:09 Random Glucose 106 mg/dL (65-105) H 10/22/18 07:09 Calcium 8.9 mg/dl (8.6-10.4) 10/22/18 07:09 Phosphorus 4.3 mg/dL (2.5-4.5) 10/22/18 07:09 Magnesium 1.8 mg/dL (1.6-2.3) 10/22/18 07:09 Total Bilirubin 0.2 mg/dL (0.2-1.3) 10/22/18 07:09 AST 14 U/L (14-36) 10/22/18 07:09 ALT 15 U/L (9-52) 10/22/18 07:09 Alkaline Phosphatase 43 U/L (38-126) 10/22/18 07:09 Total Protein 6.1 g/dL (6.3-8.3) L 10/22/18 07:09 Albumin 3.5 g/dL (3.5-5.0) 10/22/18 07:09 Globulin 2.5 gm/dL (2.2-3.9) 10/22/18 07:09 Albumin/Globulin Ratio 1.4 (1.0-2.1) 10/22/18 07:09 Lipase 20 U/L (23-300) L 10/20/18 00:47 Urine Color Straw (YELLOW) 10/20/18 00:47 Urine Clarity Clear (Clear) 10/20/18 00:47 Urine pH 6.0 (5.0-8.0) 10/20/18 00:47 Ur Specific [place] 1.010 (1.003-1.030) 10/20/18 00:47 Urine Protein Negative mg/dL (NEGATIVE) 10/20/18 00:47 Urine Glucose (UA) Normal mg/dL (Normal) 10/20/18 00:47 Urine Ketones Negative mg/dL (NEGATIVE) 10/20/18 00:47 Urine Blood Negative (NEGATIVE) 10/20/18 00:47 Urine Nitrate Negative (NEGATIVE) 10/20/18 00:47 Urine Bilirubin Negative (NEGATIVE) 10/20/18 00:47 Urine Urobilinogen Normal mg/dL (0.2-1.0) 10/20/18 00:47 Ur Leukocyte Esterase Neg Alex/uL (Negative) 10/20/18 00:47 Urine WBC (Auto) < 1 /hpf (0-5) 10/20/18 00:47 Urine RBC (Auto) 3 /hpf (0-3) 10/20/18 00:47 Ur Squamous Epith Cells 1 /hpf (0-5) 10/20/18 00:47 Urine HCG, Qual Negative (NEGATIVE) 10/20/18 00:47 Discharge Exam - Head Exam Head Exam: NORMAL INSPECTION Discharge Plan - Discharge Medications Prescriptions: Ciprofloxacin HCl [Cipro] 500 mg PO BID #24 tablet Lactobacillus Acidophilus [Lactobacillus] 1 cap PO Q12H #84 cap Metronidazole [Flagyl] 500 mg PO TID #36 tablet - Follow Up Plan Condition: STABLE Disposition: HOME/ ROUTINE Additional Instructions: Pt is to be discharged home with the following medications Cipro Flagyl Lactobacillus Pt is to follow up with the [facility] for colonoscopy in 8 weeks [place] also follow up with the [facility] after your colonoscopy, pending your results they should determine if you will require any surgical intervention Please obtain MRI image from this hospital course and please obtain a follow up MRI in 6 months for follow up and monitoring of your Adrenal Adenoma Take care and be well!
[2018-10-22] MEDS ORDERED: Influenza Vaccine 60 mcg/0.5 mL SYR (4YR UP) IM ONE (10:47)
--- NOTE | 2018-10-22 18:29 | CP.PCM.PCO ---
Physician Communication Note - Physician Communication Note Physician Communication Note: Please see above
== END 2018-10-22 13:31 | disposition home or self-care (01) | DRG 244 ==
LOC: C.ER 00:06 → C.9E 03:45 → C.6T 04:18
PROVIDERS: ADMIT Family Medicine; ATTEND Family Medicine
DX: K57.32 Diverticulitis of large intestine without perforation or abscess without bleeding (principal); D35.01 Benign neoplasm of right adrenal gland; K52.9 Noninfective gastroenteritis and colitis, unspecified; K58.9 Irritable bowel syndrome, unspecified; K76.9 Liver disease, unspecified